=== PATIENT | male | born 1970 | race Caucasian/White ===

== ENCOUNTER 2022-07-29 14:06 | Observation (INO) | payer BC ==
[~2022-07-29] VITALS: Ht 182.9 cm; Wt 136.1 kg
[2022-07-29 14:51] LABS: BASOPHILS # (AUTO) 0.1 (0.0-0.1); BASOPHILS % 0.9 % (0.0-1.0); EOSINOPHILS # (AUTO) 0.5 (0.0-0.4); EOSINOPHILS % 5.5 % (0.0-6.0); HEMATOCRIT 47.3 % (38.2-49.6); HEMOGLOBIN 15.7 g/dL (14.0-18.0); LYMPHOCYTES # (AUTO) 2.6 (1.0-3.2); LYMPHOCYTES % 26.4 % (18.0-39.1); MEAN CORPUSCULAR HEMOGLOBIN 31.4 pg (28-32); MEAN CORPUSCULAR HGB CONC 33.2 g/dL (31-35); MEAN CORPUSCULAR VOLUME 94.6 fL (81-99); MONOCYTES # (AUTO) 0.9 (0.2-0.8); MONOCYTES % 9.7 % (4.4-11.3); NEUTROPHILS # (AUTO) 5.6 (2.1-6.9); NEUTROPHILS % 57.3 % (38.7-80.0); PLATELET COUNT 250 x10e3/uL (140-360); RED CELL DISTRIBUTION WIDTH 11.9 % (11.7-14.4)
[2022-07-29 15:04] LABS: INR 1.02; PROTHROMBIN TIME 13.6 seconds (11.9-14.5)
[2022-07-29 15:05] LABS: PARTIAL THROMBOPLASTIN TIME 32.6 seconds (23.8-35.5)
[2022-07-29 15:15] LABS: ALANINE AMINOTRANSFERASE 22 IU/L (0-55); ALBUMIN 3.8 g/dL (3.5-5.0); ALBUMIN/GLOBULIN RATIO 1.2 (0.8-2.0); ALKALINE PHOSPHATASE 101 IU/L (40-150); ANION GAP 15.7 mmol/L (8-16); BLOOD UREA NITROGEN 13 mg/dL (7-26); BUN/CREATININE RATIO 13 (6-25); CALCIUM 9.1 mg/dL (8.4-10.2); CARBON DIOXIDE 24 mmol/L (22-29); CHLORIDE 105 mmol/L (98-107); CREATINE KINASE 140 IU/L (30-200); CREATININE, SERUM 1.02 mg/dL (0.72-1.25); GLUCOSE 94 mg/dL (74-118); POTASSIUM 3.7 mmol/L (3.5-5.1); SODIUM 141 mmol/L (136-145)
[2022-07-29] MEDS ORDERED: Morphine 4mg INJECTION 4 MG/ML INJ IV PRN (15:45)
[2022-07-29] MEDS ORDERED: SODIUM CHLORIDE FLUSH 10 ML SYR INJ PRN (15:45)
[2022-07-29] MEDS ORDERED: ONDANSETRON HCL INJ 2MG/ML 2ML 2 MG/ML VIAL IV PRN (15:45)
[2022-07-29] MEDS ORDERED: ASPIRIN 81 MG CHEW TAB PO ONE (15:45)
[2022-07-29 20:00] VITALS: BP 123/89
[2022-07-29 20:18] VITALS: BP 123/89
[2022-07-29 20:33] VITALS: BP 123/89
[2022-07-29] MEDS ORDERED: ATORVASTATIN CA10 MG PO (20:38)
[2022-07-29] MEDS ORDERED: POTASSIUM CHLO10 ME1 PO (20:38)
[2022-07-29] MEDS ORDERED: ASPIRIN81 MG PO (20:39)
[2022-07-29] MEDS ORDERED: VITAMIN D31 ML (20:40)
[2022-07-29] MEDS ORDERED: VITAMIN B-121000 MCG PO (20:40)
[2022-07-29] MEDS ORDERED: PROBIOTIC & AC1 EACH PO (20:41)
[2022-07-30] VITALS: BP 101/56
[2022-07-30 04:00] VITALS: BP 119/79
[2022-07-30 04:58] LABS: BASOPHILS # (AUTO) 0.1 (0.0-0.1); BASOPHILS % 0.9 % (0.0-1.0); EOSINOPHILS # (AUTO) 0.6 (0.0-0.4); EOSINOPHILS % 6.6 % (0.0-6.0); HEMATOCRIT 45.6 % (38.2-49.6); HEMOGLOBIN 15.8 g/dL (14.0-18.0); LYMPHOCYTES # (AUTO) 2.5 (1.0-3.2); LYMPHOCYTES % 28.2 % (18.0-39.1); MEAN CORPUSCULAR HEMOGLOBIN 31.4 pg (28-32); MEAN CORPUSCULAR HGB CONC 34.6 g/dL (31-35); MEAN CORPUSCULAR VOLUME 90.7 fL (81-99); MONOCYTES # (AUTO) 0.7 (0.2-0.8); MONOCYTES % 8.3 % (4.4-11.3); NEUTROPHILS # (AUTO) 4.9 (2.1-6.9); NEUTROPHILS % 55.7 % (38.7-80.0); PLATELET COUNT 217 x10e3/uL (140-360); RED BLOOD COUNT 5.03 x10e6/uL (4.3-5.7); RED CELL DISTRIBUTION WIDTH 12.2 % (11.7-14.4)
[2022-07-30 05:18] LABS: ANION GAP 16.1 mmol/L (8-16); CALCIUM 8.6 mg/dL (8.4-10.2); CREATININE, SERUM 0.97 mg/dL (0.72-1.25); POTASSIUM 4.1 mmol/L (3.5-5.1)
[2022-07-30 05:58] LABS: CREATINE KINASE 133 IU/L (30-200)
[2022-07-30 06:27] LABS: CHOL/HDL RATIO 4.8 (3.9-4.7)
[2022-07-30 08:02] VITALS: BP 143/78
[2022-07-30 08:09] VITALS: BP 143/78
[2022-07-30 11:30] VITALS: BP 134/86
== END 2022-07-30 15:23 | disposition left against medical advice (07) ==
LOC: ER 15:06 → ERHOLD 15:46 → MED/SURG 18:04
PROVIDERS: ADMIT Internal Medicine; ATTEND Internal Medicine
DX: R07.89 Other chest pain (principal); E78.5 Hyperlipidemia, unspecified; M79.7 Fibromyalgia; Z20.822 Contact with and (suspected) exposure to COVID-19
CPT/HCPCS: 0223U; 36415 ×2; 71045; 80048; 80053; 80061; 82550 ×2; 82553 ×2; 83880; 84484 ×2; 85025 ×2; 85379; 85610; 85730; 93005 ×2; 93306; 94799 ×2; 99284; G0378 ×2